=== PATIENT | male | born 1955 | race Two or more races ===

== ENCOUNTER 2024-11-24 13:34 | Outpatient (RCR) | payer OTHER, SELFPAY ==
--- NOTE | 2024-11-24 16:15 | CTCFLWUP_ITS ---
[facility] [address], [place] [address] FOLLOW-UP NOTE Date: 11/24/2024 MR#: [id number] Name: NITHIN BAIG : 1955 Dx: C61 Malignant neoplasm of prostate Identification. Status post radical prostatectomy prostate [facility] T3bN1c 08/11/2018. For high risk features and rising PSA three 6600 cGy VMAT completed 01/18/2019. Had about 2 years duration of Lupron last injection 12/02/2020. Most recent PSA 0.1 Assessment. 1. T3b N1c surgery 08/11/2018. 2. Postop XRT 6600 cGy completed 01/18/2019 with 2 years worth of Lupron injections. 3. Told patient to return in 6 months with another PSA check. Electronically signed by: Eliu Wills M.D. 11/24/2024 4:12 PM
== END 2024-12-02 23:59 | disposition home or self-care (01) ==
LOC: SCTC 13:34
PROVIDERS: PCP Family Medicine; Referring Provider Family Medicine; Visit Provider Radiology Therapeutic Radiology
DX: C61 Malignant neoplasm of prostate (principal); Z90.79 Acquired absence of other genital organ(s); Z92.3 Personal history of irradiation
CPT/HCPCS: 99213; G0463

== ENCOUNTER → 2024-12-27 | Outpatient (BNVA) | payer OTHER, SELFPAY | END | disposition home or self-care (01) | PROVIDERS: PCP Family Medicine; Referring Provider Family Medicine; Visit Provider Physician Assistant | DX: C61 Malignant neoplasm of prostate (principal); I10 Essential (primary) hypertension; E78.00 Pure hypercholesterolemia, unspecified; E11.9 Type 2 diabetes mellitus without complications; E03.9 Hypothyroidism, unspecified; Z87.891 Personal history of nicotine dependence | CPT/HCPCS: Q3014 ==

== ENCOUNTER → 2025-03-16 | Outpatient (BNVA) | payer OTHER, SELFPAY | END | disposition home or self-care (01) | PROVIDERS: PCP Family Medicine; Referring Provider Family Medicine; Visit Provider Urology | DX: N40.1 Benign prostatic hyperplasia with lower urinary tract symptoms (principal); R39.12 Poor urinary stream; I10 Essential (primary) hypertension; E78.00 Pure hypercholesterolemia, unspecified; E11.9 Type 2 diabetes mellitus without complications; E03.9 Hypothyroidism, unspecified; Z86.73 Personal history of transient ischemic attack (TIA), and cerebral infarction without residual deficits; Z87.891 Personal history of nicotine dependence | CPT/HCPCS: 51741; 51798 ==

== ENCOUNTER → 2025-03-31 | Outpatient (CLI) | payer OTHER, MEDICAID, SELFPAY ==
--- NOTE | 2025-03-31 10:30 | XR_ITS ---
Examination: Abdomen sonogram, Limited Date and time of exam: March 31, 2025 1056 hours INDICATIONS: Diagnosis liver disease, 27 mm right lobe liver cyst on ultrasound 07/20/2023 Technique: Real-time sandoval scale transabdominal sonographic images of the upper abdomen obtained. Findings: Normal gallbladder Normal common bile duct 0.4 cm Pancreatic head 2.3 cm Liver 15.4 cm right lobe liver cyst 15 x 18 x 21 mm Normal hepatopedal portal venous flow IVC is obscured by bowel gas IMPRESSION: Small benign liver cyst
--- NOTE | 2025-03-31 11:00 | XR_ITS ---
Examination: Thyroid sonography complete Date and time: March 31, 2025 1104 hours INDICATIONS: Thyroid sonogram July 18, 2024 complex cystic mass in the mid right thyroid lobe 26 mm TECHNIQUE: Grayscale sonographic images thyroid lobes FINDINGS: Right thyroid 4.2 cm Midpole nodule 9 x 7 x 11 mm Lower pole nodule 12 x 9 x 11 mm Left thyroid 3.9 cm No thyroid nodules IMPRESSION: Right thyroid nodules as above
--- NOTE | 2025-03-31 11:30 | XR_ITS ---
Examination: CT chest, without intravenous contrast. Sagittal and coronal 2-D reconstructions. Exam date and time: March 31, 2025 1136 hours Comparison 06/22/2023 INDICATIONS: 3 mm pulmonary nodule right midlung on CT chest 06/22/2023 CTDI:vol (mGy) 16 DLP: (mGycm) 491 Technique: Multiple 3.0 mm axial sections of the chest to been obtained. Bone and lung density settings are obtained. Sagittal and coronal 2-D reconstructions have been obtained. Low dose protocols were performed. One or more of the following dose reduction techniques were used; automated exposure control, adjustment of the mA and/or KV according to patient size, use of iterative reconstruction technique. Findings: Thoracic aortic calcification no aneurysmal dilatation Pulmonary artery segments are not enlarged Significant calcification left main left anterior descending left circumflex right coronary arteries Mild enlargement cardiac contour Stable 3 mm pulmonary nodule right midlung 2 mm calcified granuloma lingular segment No new pulmonary nodules No pneumonia or pulmonary edema Fatty infiltration throughout the liver IMPRESSION: Stable 3 mm pulmonary nodule right midlung, no new pulmonary nodules
== END | disposition home or self-care (01) ==
PROVIDERS: PCP Internal Medicine; Referring Provider Internal Medicine; Visit Provider Internal Medicine
DX: K76.89 Other specified diseases of liver (principal); E04.2 Nontoxic multinodular goiter; R91.1 Solitary pulmonary nodule
CPT/HCPCS: 71250; 76536; 76705

== ENCOUNTER 2025-05-30 14:35 | Outpatient (RCR) | payer OTHER, MEDICAID, SELFPAY ==
--- NOTE | 2025-05-30 15:39 | CTCFLWUP_ITS ---
[facility] [address] [place], [place] [address] FOLLOW-UP NOTE Date: 05/30/2025 MR#: [id number] Name: NITHIN BAIG : 1955 Dx: C61 Malignant neoplasm of prostate Identification. Prostatectomy [facility] T3bN1c 08/11/2018. 6600 cGy VMAT completed 01/18/2019 2 years worth of Lupron last injection 12/02/2020. Most recent PSA less than 0.1 on 05/23/2025. Doing well with no significant pelvic symptoms. Follow-up in 6 months with another PSA. Electronically signed by: Eliu Wills M.D. 05/30/2025 3:37 PM
== END 2025-06-04 23:59 | disposition home or self-care (01) ==
LOC: SCTC 14:35
PROVIDERS: PCP Internal Medicine; Referring Provider Internal Medicine; Visit Provider Radiology Therapeutic Radiology
DX: C61 Malignant neoplasm of prostate (principal); Z90.79 Acquired absence of other genital organ(s); Z92.3 Personal history of irradiation
CPT/HCPCS: 99212; G0463

== ENCOUNTER → 2025-07-04 | Outpatient (BNVA) | payer OTHER, MEDICAID, SELFPAY | END | disposition home or self-care (01) | PROVIDERS: PCP Family Medicine; Referring Provider Family Medicine; Visit Provider Urology | DX: C61 Malignant neoplasm of prostate (principal); N52.9 Male erectile dysfunction, unspecified; E11.9 Type 2 diabetes mellitus without complications; I10 Essential (primary) hypertension; E66.9 Obesity, unspecified; Z71.3 Dietary counseling and surveillance; E78.00 Pure hypercholesterolemia, unspecified; E03.9 Hypothyroidism, unspecified; Z92.3 Personal history of irradiation | CPT/HCPCS: 81003; 99213; G0463 ==